=== PATIENT | male | born 1945 ===

== ENCOUNTER 2022-12-31 10:15 | Inpatient (IN) | payer OTHER ==
[~2022-12-31] VITALS: Ht 167.6 cm; Wt 76.2 kg
[2022-12-31] MEDS ORDERED: COZAAR25 MG PO (11:38)
[2022-12-31] MEDS ORDERED: ZOCOR20 MG PO (11:38)
[2023-01-06 19:20] LABS: HEMATOCRIT 42.7 % (39.0-48.0); MEAN CELL VOLUME 82.9 fL (80.0-100.00); MEAN CORPUSCULAR HEMOGLOBIN 27.1 pg (27.00-32.0); MEAN CORPUSCULAR HGB CONC 32.7 g/dl (32.0-36.0); PLATELET COUNT 203 K/uL (150-450); RED BLOOD COUNT 5.16 M/uL (4.00-6.00); RED CELL DISTRIBUTION WIDTH 15.1 % (11.5-14.5)
[2023-01-07 06:23] LABS: HEMATOCRIT 37.9 % (39.0-48.0); HEMOGLOBIN 12.6 g/dL (13-16.00); MEAN CELL VOLUME 83.2 fL (80.0-100.00); MEAN CORPUSCULAR HEMOGLOBIN 27.6 pg (27.00-32.0); MEAN CORPUSCULAR HGB CONC 33.1 g/dl (32.0-36.0); PLATELET COUNT 182 K/uL (150-450); RED BLOOD COUNT 4.56 M/uL (4.00-6.00); RED CELL DISTRIBUTION WIDTH 15.2 % (11.5-14.5)
[2023-01-07 07:03] LABS: ALBUMIN 2.8 gm/dL (3.4-5.0); CALCIUM 8.3 mg/dL (8.5-10.1); CREATININE SERUM 1.26 mg/dL (0.70-1.30); GFR 55.49; MAGNESIUM 1.7 mg/dL (1.8-2.4); PHOSPHOROUS 4.3 mg/dL (2.5-4.9); POTASSIUM 4.25 mEq/L (3.5-5.1)
== END 2023-01-08 09:33 | disposition home or self-care (01) | DRG 331 ==
LOC: ADM 10:15 → SURG 01-06 05:27 → O/R 01-06 05:27 → SURG 01-06 10:15 → CIR.AMB 01-06 10:15 → EDSTATUS 01-06 10:15 → SURG 01-06 11:00
PROVIDERS: ADMIT Colon & Rectal Surgery; ATTEND Colon & Rectal Surgery
PROC: 0DBP4ZZ Excision of Rectum, Percutaneous Endoscopic Approach (ICD-10-PCS; 2023-01-06)
PROC: 8E0W4CZ Robotic Assisted Procedure of Trunk Region, Percutaneous Endoscopic Approach (ICD-10-PCS; 2023-01-06)
PROC: 0DJD8ZZ Inspection of Lower Intestinal Tract, Via Natural or Artificial Opening Endoscopic (ICD-10-PCS; 2023-01-06)
PROC: 0DTN4ZZ Resection of Sigmoid Colon, Percutaneous Endoscopic Approach (ICD-10-PCS; principal; 2023-01-06 11:00)
DX: K57.20 Diverticulitis of large intestine with perforation and abscess without bleeding (principal); K62.1 Rectal polyp
CPT/HCPCS: 44207; 44213; 45300; S2900